=== PATIENT | male | born 1975 | race Two or more races ===

== ENCOUNTER → 2019-11-05 | Outpatient (CLI) | payer OTHER ==
[~2019-11-05] MED LIST: NEO-POLYMYXIN-H10 M2 OTIC
== END | disposition home or self-care (01) ==
LOC: OFIC 805 11:30
PROVIDERS: ATTEND Otolaryngology
DX: H90.3 Sensorineural hearing loss, bilateral (principal); H93.8X3 Other specified disorders of ear, bilateral; H61.23 Impacted cerumen, bilateral